=== PATIENT | female | born 1955 | race Caucasian/White ===

== ENCOUNTER → 2022-07-08 | Emergency (ER) | payer OTHER ==
[~2022-07-08] VITALS: Ht 172.7 cm; Wt 74.8 kg
[~2022-07-08] MED LIST: CELEBREX100 MG PO
== END | disposition left against medical advice (07) ==
LOC: ER 20:35
DX: Z53.21 Procedure and treatment not carried out due to patient leaving prior to being seen by health care provider (principal)